=== PATIENT | female | born 1975 | race Caucasian/White ===

== ENCOUNTER 2020-10-21 21:23 | Emergency (ER) | payer SELFPAY | END 2020-10-21 21:33 | disposition left against medical advice (07) | LOC: EDUNIT# 21:23 → ER 21:24 | DX: R10.11 Right upper quadrant pain (principal) ==

== ENCOUNTER 2020-11-25 14:48 | Emergency (ER) | payer OTHER ==
[~2020-11-25] VITALS: Ht 162.5 cm; Wt 102.0 kg
--- NOTE | 2020-11-25 15:09 | ED Chest Pain ---
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 She said it started on her way home from the alliance party. There were going to stop off of the ER because her had shoulder pain that he wanted to get checked out. She is describes this starting about an hour ago fleeting lasting no more than a minute or 2 of intermittent seconds long spasms in her left chest not reproducible by direct palpation or inspiration. She is not having any pain presently. She has not taken anything for it. She describes the pain as greater than 10 out of 10. She has never had this before nor did she have a history of heart or lung disease. She is not a smoker. She does take lisinopril for her diabetes but denies a history of hypertension. She has hyperlipidemia on a statin. She denies a significant family history of coronary disease. She is having no fevers chills cough shortness of air weakness swelling in her legs recent surgery or immobilization nor does she use contraceptives. She has a strong history of acid reflux with use of omeprazole daily and had an EGD a week ago showing gastritis and GERD. Allergies and Home Medications Allergies Coded Allergies: No Known Drug Allergies (Unverified , 11/25/20) Patient Home Medication List Home Medication List Reviewed: Yes Review of Systems Review of Systems Constitutional: No chills, No diaphoresis, No fever, No malaise EENTM: No Blurred Vision, No Double Vision Respiratory: Denies Cough, Denies Shortness of Air Cardiovascular: See HPI, Chest Pain; Denies Edema, Denies Lightheadedness Gastrointestinal: Denies Abdominal Pain, Denies Constipated, Denies Diarrhea, Denies Nausea Genitourinary: Denies Burning, Denies Discharge Musculoskeletal: No back pain, No joint pain Skin: No pruritus, No rash Psychiatric/Neurological: Denies Headache, Denies Numbness All Other Systems Reviewed Negative Unless Noted: Yes Past Gemtoqd-Chucmb-Oampmg Hx Patient Social History Alcohol Use: Denies Use Drug of Choice: Denies Smoking Status: Never a Smoker Physical Exam Vital Signs Vital Signs - First Documented 11/25/20 14:58 Temp 36.0 Pulse 80 Resp 16 B/P (MAP) 123/79 (94) Pulse Ox 97 O2 Delivery Room Air Capillary Refill : Height, Weight, BMI Height: '" Weight: lbs. oz. kg; BMI Method: General Appearance: No Apparent Distress, Obese HEENT: PERRL/EOMI, Pharynx Normal, Moist Mucous Membranes Neck: Full Range of Motion, Normal Inspection Respiratory: Chest Non Tender, Lungs Clear, Normal Breath Sounds, No Accessory Muscle Use, No Respiratory Distress Cardiovascular: Regular Rate, Rhythm, No Edema, Normal Peripheral Pulses Gastrointestinal: Normal Bowel Sounds, Non Tender, Soft Extremity: Normal Capillary Refill, Normal Inspection, Normal Range of Motion, Non Tender Neurologic/Psychiatric: Alert, Oriented x3, No Motor/Sensory Deficits Skin: Normal Color, Warm/Dry Progress/Results/Core Measures Results/Orders Lab Results Laboratory Tests Test 11/25/20 15:09 11/25/20 16:23 11/25/20 17:05 Range/Units White Blood Count 7.5 4.3-11.0 10^3/uL Red Blood Count 4.96 3.80-5.11 10^6/uL Hemoglobin 13.7 11.5-16.0 g/dL Hematocrit 41 35-52 % Mean Corpuscular Volume 83 80-99 fL Mean Corpuscular Hemoglobin 28 25-34 pg Mean Corpuscular Hemoglobin Concent 33 32-36 g/dL Red Cell Distribution Width 13.2 10.0-14.5 % Platelet Count 205 130-400 10^3/uL Mean Platelet Volume 11.3 9.0-12.2 fL Immature Granulocyte % (Auto) 1 % Neutrophils (%) (Auto) 55 42-75 % Lymphocytes (%) (Auto) 33 12-44 % Monocytes (%) (Auto) 8 0-12 % Eosinophils (%) (Auto) 2 0-10 % Basophils (%) (Auto) 1 0-10 % Neutrophils # (Auto) 4.1 1.8-7.8 10^3/uL Lymphocytes # (Auto) 2.5 1.0-4.0 10^3/uL Monocytes # (Auto) 0.6 0.0-1.0 10^3/uL Eosinophils # (Auto) 0.2 0.0-0.3 10^3/uL Basophils # (Auto) 0.1 0.0-0.1 10^3/uL Immature Granulocyte # (Auto) 0.1 0.0-0.1 10^3/uL Sodium Level 138 135-145 MMOL/L Potassium Level 4.5 3.6-5.0 MMOL/L Chloride Level 101 98-107 MMOL/L Carbon Dioxide Level 25 21-32 MMOL/L Anion Gap 12 5-14 MMOL/L Blood Urea Nitrogen 12 7-18 MG/DL Creatinine 0.60 0.60-1.30 MG/DL Estimat Glomerular Filtration Rate > 60 BUN/Creatinine Ratio 20 Glucose Level 237 H 70-105 MG/DL Calcium Level 9.5 8.5-10.1 MG/DL Corrected Calcium 9.5 8.5-10.1 MG/DL Magnesium Level 1.9 1.6-2.4 MG/DL Total Bilirubin 0.6 0.1-1.0 MG/DL Aspartate Amino Transf (AST/SGOT) 12 5-34 U/L Alanine Aminotransferase (ALT/SGPT) 21 0-55 U/L Alkaline Phosphatase 81 40-136 U/L Myoglobin 13.5 10.0-92.0 NG/ML Troponin I < 0.028 < 0.028 <0.028 NG/ML Total Protein 7.4 6.4-8.2 GM/DL Albumin 4.0 3.2-4.5 GM/DL Lipase 23 8-78 U/L Prothrombin Time 12.7 12.2-14.7 SEC INR Comment 0.9 0.8-1.4 Activated Partial Thromboplast Time 28 24-35 SEC My Orders Orders - JACKSON SANDHU Continuous Ekg Monitoring (11/25/20 14:49) Ekg Tracing (11/25/20 14:49) Cbc With Automated Diff (11/25/20 15:04) Magnesium (11/25/20 15:04) Chest 1 View, Ap/Pa Only (11/25/20 15:04) Comprehensive Metabolic Panel (11/25/20 15:04) Myoglobin Serum (11/25/20 15:04) Protime With Inr (11/25/20 15:04) Partial Thromboplastin Time (11/25/20 15:04) O2 (11/25/20 15:04) Lipid Panel (11/26/20 06:00) Ed Iv/Invasive Line Start (11/25/20 15:04) Lipase (11/25/20 15:04) Troponin I (11/25/20 15:04) Aspirin Chewable Tablet (Baby Aspirin Ch (11/25/20 15:15) Nitroglycerin 0.4 Mg Btl 25's (Nitrostat (11/25/20 15:15) Troponin I (11/25/20 16:54) Medications Given in ED Current Medications Medications Dose Ordered Sig/Dionte Route Start Time Stop Time Status Last Admin Dose Admin Aspirin 324 mg ONCE ONCE PO 11/25/20 15:15 11/25/20 15:16 DC 11/25/20 15:20 324 MG Vital Signs/I&O 11/25/20 14:58 Temp 36.0 Pulse 80 Resp 16 B/P (MAP) 123/79 (94) Pulse Ox 97 O2 Delivery Room Air Progress Progress Note #1: Time: 15:16 Progress Note Differential includes gallbladder, pancreatitis, GERD, or esophagitis, less likely coronary or lung/bronchospasm. She has normal sounding lungs. Not a lot of risk factors besides diabetes and hyperlipidemia. She is premenopausal. Plan to check some labs and give her some aspirin and nitroglycerin if his pain comes back again. She is not tender over the right upper quadrant or epigastric region. We may try a GI cocktail as well. Progress Note #2: Time: 16:55 Progress Note Heart score 1 point. Low risk 0.9-1.7% 30-day MACE. Repeat troponin at 3 hours and if negative, discharge home with outpatient follow-up. No further material deterioration in her stay in the ER. Plan to repeat a delta troponin now which will be greater than 2 hours under the time of her pain starting and her initial troponin. Initial ECG Impression Date: November 25, 2020 Initial ECG Impression Time: 14:56 Initial ECG Rate: 80 Initial ECG Rhythm: Normal Sinus Initial ECG Intervals: Normal Initial ECG Impression: Normal Initial ECG Comparisson: No Previous ECG Available Comment Normal sinus rhythm without clinically relevant ST elevation or depression. Diagnostic Imaging Diagonstic Imaging: Xray Plain Films/CT/US/NM/MRI: chest Comments NAME: ZULEYMA SPAIN MED REC#: [id number] PT STATUS: REG ER : 1975 PHYSICIAN: JACKSON SANDHU MD ADMIT DATE: 11/25/20/ER Draft Date of Exam:11/25/20 CHEST 1 VIEW, AP/PA ONLY INDICATION: Chest pain. TIME OF EXAM: 3:55 PM No prior studies are available for comparison. FINDINGS: The heart size is normal. The pulmonary vascularity is unremarkable. The lungs are clear. No infiltrate, effusion or pneumothorax is detected. IMPRESSION: No acute cardiopulmonary process is detected. Dictated on workstation # [id number] Dict: 11/25/20 1557 Trans: 11/25/20 1559 [id number] Interpreted by: GAIL MURRAY MD Electronically signed by: Reviewed: Reviewed by Me Departure Impression Primary Impression: Chest pain Qualified Codes: R07.9 - Chest pain, unspecified Disposition: 01 HOME, SELF-CARE Condition: Stable Departure-Patient Inst. Decision time for Depature: 17:50 Referrals: IAN MINER MD NO,LOCAL PHYSICIAN (PCP) Primary Care Physician Patient Instructions: Chest Pain That Is Not Caused by the Heart (DC) Add. Discharge Instructions: But if anything acutely dangerous tonight about your chest pain. May be from spasms in the muscles of your chest or spasms from your esophagus related to your acid reflux history. I would encourage you to follow-up with a rubber cutter and shape carver sometime in the next couple weeks by calling for an appointment at Dr. Lauren's office and do a work-up. If he gives you clearance then you can also start looking at other issues that could be causing your chest pain that we described above through your primary care doctor's office. Return to the ER promptly if you are having intractable, constant chest pain, shortness of air or other worrisome symptoms. Consider antacids, Tylenol, ibuprofen, topical creams, heat rest and ice. All discharge instructions reviewed with patient and/or family. Voiced understanding. Copy Copies To 1: IAN MINER MD, TITUS J November 25, 2020 15:09
[2020-11-25] MEDS ORDERED: NITROGLYCERIN 0.4 MG SL TABS BTL 25'S SL PRN (15:15)
[2020-11-25] MEDS ORDERED: ASPIRIN 81 MG CHEW (CHILDREN'S ASA) PO ONE (15:15)
[2020-11-25 15:18] LABS: BASOPHILS # (AUTO) 0.1 10^3/uL (0.0-0.1); BASOPHILS % (AUTO) 1 % (0-10); EOSINOPHILS # (AUTO) 0.2 10^3/uL (0.0-0.3); EOSINOPHILS % (AUTO) 2 % (0-10); HEMATOCRIT 41 % (35-52); HEMOGLOBIN 13.7 g/dL (11.5-16.0); LYMPHOCYTES # (AUTO) 2.5 10^3/uL (1.0-4.0); LYMPHOCYTES % (AUTO) 33 % (12-44); MEAN CORPUSCULAR HEMOGLOBIN 28 pg (25-34); MEAN CORPUSCULAR HGB CONC 33 g/dL (32-36); MEAN CORPUSCULAR VOLUME 83 fL (80-99); MEAN PLATELET VOLUME 11.3 fL (9.0-12.2); MONOCYTES # (AUTO) 0.6 10^3/uL (0.0-1.0); MONOCYTES % (AUTO) 8 % (0-12); NEUTROPHILS # (AUTO) 4.1 10^3/uL (1.8-7.8); NEUTROPHILS % (AUTO) 55 % (42-75); PLATELET COUNT 205 10^3/uL (130-400); WHITE BLOOD COUNT 7.5 10^3/uL (4.3-11.0)
[2020-11-25 15:30] LABS: CHLORIDE 101 MMOL/L (98-107); POTASSIUM 4.5 MMOL/L (3.6-5.0); SODIUM 138 MMOL/L (135-145)
[2020-11-25 15:31] LABS: CALCIUM 9.5 MG/DL (8.5-10.1)
[2020-11-25 15:32] LABS: GLUCOSE 237 MG/DL (70-105); TOTAL PROTEIN 7.4 GM/DL (6.4-8.2)
[2020-11-25 15:33] LABS: CARBON DIOXIDE 25 MMOL/L (21-32)
[2020-11-25 15:34] LABS: BILIRUBIN,TOTAL 0.6 MG/DL (0.1-1.0)
[2020-11-25 15:36] LABS: ALKALINE PHOSPHATASE 81 U/L (40-136); GFR ESTIMATED > 60
[2020-11-25 15:37] LABS: BUN/CREATININE RATIO 20
[2020-11-25 15:39] LABS: ALANINE AMINOTRANSFERASE 21 U/L (0-55); MAGNESIUM 1.9 MG/DL (1.6-2.4)
[2020-11-25 15:40] LABS: LIPASE 23 U/L (8-78)
--- NOTE | 2020-11-25 16:00 | Diagnostic Imaging Report ---
INDICATION: Chest pain. TIME OF EXAM: 3:55 PM No prior studies are available for comparison. FINDINGS: The heart size is normal. The pulmonary vascularity is unremarkable. The lungs are clear. No infiltrate, effusion or pneumothorax is detected. IMPRESSION: No acute cardiopulmonary process is detected. Dictated by: Dictated on workstation # [id number]
[2020-11-25 17:20] LABS: INR 0.9 (0.8-1.4); PROTHROMBIN TIME PATIENT 12.7 SEC (12.2-14.7)
[2020-11-25 17:58] VITALS: BP 117/69
== END 2020-11-25 17:58 | disposition home or self-care (01) ==
LOC: EDUNIT# 14:48 → ER 14:50
DX: R07.9 Chest pain, unspecified (principal); E66.9 Obesity, unspecified; K21.9 Gastro-esophageal reflux disease without esophagitis; E78.5 Hyperlipidemia, unspecified; Z79.899 Other long term (current) drug therapy
CPT/HCPCS: 36415; 71045; 80053; 83690; 83735; 83874; 84484; 85025; 85610; 85730; 93005